=== PATIENT | male | born 1950 | race Caucasian/White ===

== ENCOUNTER 2022-04-14 10:35 | Day surgery (SDC) | payer OTHER ==
[~2022-04-14] VITALS: Ht 177.8 cm; Wt 83.9 kg
[~2022-04-14 10:35] MED LIST: CEFAZOLIN SOD 2 GM in D5W 50 ML IV ONE
[2022-04-14] MEDS ORDERED: LR 1,000 ML IV SCH (15:15)
[2022-04-14] MEDS ORDERED: fentaNYL CITRATE/PF 100 MCG/2 ML AMP IVP PRN (15:15)
[2022-04-14] MEDS ORDERED: MEPERIDINE HCL/PF 25 MG/ML DISP.SYRIN IVP PRN (15:15)
[2022-04-14] MEDS ORDERED: MORPHINE 4 MG INJ. 4 MG/ML VIAL IVP PRN (15:15)
[2022-04-14] MEDS ORDERED: METOCLOPRAMIDE HCL 10 MG/2 ML VIAL IVP PRN (15:15)
[2022-04-14] MEDS ORDERED: ONDANSETRON HCL 4 MG/2 ML VIAL IVP PRN (15:15)
[2022-04-14] MEDS ORDERED: fentaNYL CITRATE 250 MCG/5 ML AMP ONE (17:35)
[2022-04-14] MEDS ORDERED: ONDANSETRON HCL 4 MG/2 ML VIAL ONE (17:35)
[2022-04-14] MEDS ORDERED: METOCLOPRAMIDE HCL 10 MG/2 ML VIAL ONE (17:35)
[2022-04-14] MEDS ORDERED: SEVOFLURANE 15 MIN GAS INH ONE (17:35)
[2022-04-14] MEDS ORDERED: BUPIVACAINE /PF 0.25% 30 ML VIAL INJ ONE (17:35)
[2022-04-14] MEDS ORDERED: MIDAZOLAM HCL 5 MG/ML VIAL (VERSED) IV ONE (17:35)
[2022-04-14] MEDS ORDERED: SUGAMMADEX SODIUM 200 MG/2 ML VIAL IV ONE (17:35)
[2022-04-14] MEDS ORDERED: ePHEDrine sulfate 50 MG/ML VIAL ONE (17:35)
[2022-04-14] MEDS ORDERED: NS IRRIG SOLN 1000 ML IR ONE (17:35)
[2022-04-14] MEDS ORDERED: ROCURONIUM BROMIDE 10 MG/ML (ZEMURON) ONE (17:35)
[2022-04-14] MEDS ORDERED: DEXAMETHASONE SOD PHOSPHATE 4 MG/ML VIAL ONE (17:35)
[2022-04-14] MEDS ORDERED: LR 1,000 ML IV.SOLN IV ONE (17:35)
[2022-04-14] MEDS ORDERED: PROPOFOL 200MG/ 20ML VIAL (DIPRIVAN) IV ONE (17:35)
[2022-04-14 19:49] VITALS: BP_SYST 119
== END 2022-04-14 19:46 | disposition home or self-care (01) ==
LOC: SDS 10:35 → SMU 10:36 → SDS 19:46
PROVIDERS: ATTEND Surgery
DX: K40.21 Bilateral inguinal hernia, without obstruction or gangrene, recurrent (principal); I10 Essential (primary) hypertension; E78.5 Hyperlipidemia, unspecified; K21.9 Gastro-esophageal reflux disease without esophagitis; Z79.899 Other long term (current) drug therapy; Z20.822 Contact with and (suspected) exposure to COVID-19
CPT/HCPCS: 36415 ×2; 49651; 49650; 88302; 87426; U0003; C1781; J3490 ×2; J0690; J1100; J2765; J2250; J2405; J2704; J3010; J7060; J7120; S2900

== ENCOUNTER 2022-05-02 15:57 | Emergency (ER) | payer OTHER ==
[~2022-05-02] VITALS: Ht 177.8 cm; Wt 83.9 kg
[2022-05-02 16:02] VITALS: BP_SYST 123
--- NOTE | 2022-05-02 16:07 | NUR ---
Triaged pt and placed in waiting room. Pt stable.
--- NOTE | 2022-05-02 16:10 | NUR ---
Pt brought by self, A&Ox4, pt presents to ER with R testicular pain, skin pink and warm,cap refill <3, VSS, will cont to monitor
--- NOTE | 2022-05-02 16:20 | NUR ---
Dr Paez evaluating patient at bedside
[2022-05-02] MEDS ORDERED: CIPR500T5 PO (18:29)
[2022-05-02 18:36] VITALS: BP_SYST 123
--- NOTE | 2022-05-02 19:23 | NUR ---
Patient given written and verbal discharge instructions and verbalizes understanding. ER MD discussed with patient the results and treatment provided. Patient in stable condition. ID arm band removed. No Rx given. Patient educated on pain management and to follow up with PMD. Pain Scale 0/10 Opportunity for questions provided and answered. Medication side effect fact sheet provided.
== END 2022-05-02 18:36 | disposition home or self-care (01) ==
LOC: SED 15:57
DX: N45.1 Epididymitis (principal); N50.811 Right testicular pain; K21.9 Gastro-esophageal reflux disease without esophagitis; Z88.5 Allergy status to narcotic agent; Z79.899 Other long term (current) drug therapy
CPT/HCPCS: 76870-TC; 99284